=== PATIENT | female | born 1980 | race African-American/Black ===

== ENCOUNTER 2023-05-27 11:37 | Day surgery (SDC) | payer OTHER ==
[2023-05-22 14:25] VITALS: BMI 29.0
[2023-05-27 12:07] VITALS: RESP 16; TEMP 97.6
[2023-05-27] MEDS ORDERED: LIDOCAINE HCL/PF 2% SDV 5ML VIAL ONE (12:13)
[2023-05-27 13:02] VITALS: BP 118/77; PULSE 77
== END 2023-05-27 13:40 | disposition home or self-care (01) ==
LOC: FASU-ENDO 11:37
PROVIDERS: ATTEND Internal Medicine Gastroenterology
PROC: 0DB68ZX Excision of Stomach, Via Natural or Artificial Opening Endoscopic, Diagnostic (ICD-10-PCS; 2023-05-27)
PROC: 0DB98ZX Excision of Duodenum, Via Natural or Artificial Opening Endoscopic, Diagnostic (ICD-10-PCS; principal; 2023-05-27 12:33)
DX: K29.50 Unspecified chronic gastritis without bleeding (principal); B96.81 Helicobacter pylori [H. pylori] as the cause of diseases classified elsewhere; R12 Heartburn
CPT/HCPCS: 81025; 88305-TC; 88342-TC